=== PATIENT | male | born 1955 | race African-American/Black ===

== ENCOUNTER 2016-07-11 03:13 | Observation (INO) ==
[2016-07-11] MEDS ORDERED: MORPHINE 2 MG/1 ML SYRINGE IV STA (04:37)
[2016-07-11] MEDS ORDERED: ALUM/MAG/SIMETH/LIDO VISC 1:1 30 ML BOTTLE PO STA (04:37)
[2016-07-11] MEDS ORDERED: ONDANSETRON 4 MG/2 ML VIAL IV STA (04:37)
[2016-07-11] MEDS ORDERED: ASPIRIN 325 MG TABLET PO STA (04:37)
[2016-07-11] MEDS ORDERED: NITROGLYCERIN 2% OINT 1 INCH/GM PACK TOP STA (04:37)
--- NOTE | 2016-07-11 04:39 | Emergency Department Note ---
Kalpana Yu Gwan, am scribing for, and in the presence of, Renzo Benitez MD 04 :06. Eli Yu Charles R, MD, personally performed the services described in this documentation, ascribed by Janna Acuna in my presence, and it is both accurate and complete . Arrival - Arrival Chief Complaint: Chest Pain Stated Complaint: chest pain and nose continue to bleed ED Nursing Triage Note: PT STATES THAT HE STARTED HAVING CHEST PAIN SINCE 0 LAST NIGHT. STATES THAT HE TOOK HIS NIGHT TIME BLOOD PRESSURE MEDICATIONS AND THE PAIN WENT AWAY. STATES THAT HIS NOSE WAS BLEEDING AND HE THOUGHT THAT IT WOULD STOP. STATES THAT ABOUT 45 MINS AGO HIS CHEST PAIN CAME BACK AND THAT HIS NOSE CONTINUES TO BLEED. B/P IN LEFT ARM 180/119 RIGHT ARM 162/105 Mode of Arrival: Ambulatory Limitations: No Limitations Source: Patient, Old Records Reviewed, RN Notes Reviewed - History of Present Illness HPI Narrative: Pt is a 61 y/o male, with a hx of HTN, who presents to the ED with a c/o chest pain with an onset 0 last night. Patient stated that upon onset, he took his bP medication with some relief. 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 Patient said that his nose initially began bleeding on onset after he blew it and he was able to get it to stop. With second onset, his nose began to bleed again and he took 2 Clonidine with no relief. He confirmed that his pCP is Dr. Erik Philip. Patient denies being in any pain now and his epistaxis is controlled. At time of triage, nurses note that BP in pt's left arm was 180/119 and the right arm was 162/105. Onset (ago): hour(s) Consistency: constant Severity: moderate Allergies/Adverse Reactions: Allergies Allergy/AdvReac Type Severity Reaction Status Date / Time No Known Allergies Allergy Verified 07/11/16 03:18 Review of System - Review of System 12 point system: reviewed and no additional remarkable complaints except as stated - Review of System Constitutional: Present: as per HPI, other (high blood pressure) Head/Ears/Nose/Throat: Present: see HPI, epistaxis Cardiovascular: Present: as per HPI, chest pain Medical,Surgical,& Family Hx - Medical History Cardio: History of: Hypertension Rheumatology: History of;: Gout Renal: History of: Renal Problems - Social History Smoking Status: Never smoker Frequency of Alcohol Use: None Type of Drug Use: None Exam Vital Signs: Vital Signs Temperature 98.2 F 07/11/16 03:13 Pulse Rate 56 L 07/11/16 04:52 Respiratory Rate 15 07/11/16 04:52 Blood Pressure 138/90 07/11/16 04:52 O2 Sat by Pulse Oximetry 100 07/11/16 04:52 - General General appearance: alert, in no apparent distress - Head Head exam: Present: atraumatic, normocephalic - Eye Eye exam: Present: normal appearance, PERRL, EOMI - ENT ENT exam: Present: other (clotted blood noted in right nostril) - Neck Neck exam: Present: full ROM, trachea midline. Absent: tenderness, meningismus , lymphadenopathy, thyromegaly - Chest Chest inspection: Present: symmetric chest wall rise. Absent: tenderness - Respiratory Respiratory exam: Present: normal lung sounds bilaterally. Absent: respiratory distress - Cardiovascular Cardiovascular exam: Present: regular rate, normal rhythm, normal heart sounds. Absent: murmur, rubs, gallop - Abdominal Exam Abdominal exam: Present: soft, normal bowel sounds. Absent: distention, tenderness, guarding, rebound - Extremities Exam Extremities exam: Present: full ROM. Absent: tenderness, pedal edema, calf tenderness - Back Exam Back exam: Present: full ROM. Absent: tenderness - Neurological Exam Neurological exam: Present: alert, oriented X3, CN II-XII intact. Absent: motor sensory deficit - Psychiatric Psychiatric exam: Present: normal affect, normal mood - Skin Skin exam: Present: warm, dry, intact, normal color Course - Consultations Consultation #1: Dr. Del Rio will admit patient Time: 05:40 Results - Labs CBC & BMP: 07/11/16 03:40 07/11/16 03:40 Lab Results: I have reviewed the patients labs Labs: Laboratory Tests 07/11/16 03:40 Urine pH 7.0 Ur Specific [place] 1.008 Urine Urobilinogen < 2.0 H Urine RBC <1 Urine Mucus Occasional Disposition Clinical Impression: Chest pain, Acute posterior epistaxis, Renal insufficiency Case discussed with: patient, patient's family Disposition: Still a Patient Condition: Stable Time of Disposition: 05:41
--- NOTE | 2016-07-11 04:41 | EKG Report ---
Stationary ECG Study [facility] ER Test Date: 07/11/2016 3:23:39 AM Pat Name: FOZIA [facility] Department: Room: Gender: M Can Handler: Luba : 1955 Requested by: Renzo Pereira Order Number: [id number] Reading MD: FERMÍN GERMAIN Intervals [place] Rate: 69 P: 51 VT: 162 QRS: 60 QRSD: 87 T: -60 QT: 382 QTc: 402 Interpretive Statements SINUS RHYTHM LEFT VENTRICULAR HYPERTROPHY WITH REPOLARIZATION ABNORMALITY Electronically Signed On 07-11-16 18:07:42 ENGINEERING MANAGER ELECTRONICS by FERMÍN GERMAIN [email or web address]
[2016-07-11] MEDS ORDERED: ALUM/MAG/SIMETH/LIDO VISC 1:1 30 ML BOTTLE PO ONE (04:44)
[2016-07-11] MEDS ORDERED: ASPIRIN 325 MG TABLET ONE (04:44)
[2016-07-11] MEDS ORDERED: NITROGLYCERIN 2% OINT 1 INCH/GM PACK TOP ONE (04:44)
[2016-07-11] MEDS ORDERED: MORPHINE 2 MG/1 ML SYRINGE ONE (04:44)
[2016-07-11] MEDS ORDERED: ONDANSETRON 4 MG/2 ML VIAL ONE (04:44)
[2016-07-11 05:09] LABS: Apearance,Urine CLEAR (Clear); Bilirubin,Urine Negative (Negative); Blood, Urine Negative (Negative); Glucose,Urine (UA) Negative (Negative); Ketones,Urine Negative (Negative); Mucus,Urine Occasional /LPF (Occasional); Nitrite,Urine Negative (Negative); Protein,Urine Negative; RBC,Urine <1 /HPF (0-4); Urine Color Straw (Yellow); Urine Specific Gravity 1.008 (1.001-1.035); Urine Urobilinogen < 2.0 EU/DL (0.2-1.0)
[2016-07-11 05:27] LABS: Basophils % 0.6 % (0.0-0.8); Eosinophils # 0.1 10*3/uL (0.0-0.87); Eosinophils % 2.9 % (0.00-10.9); Hematocrit 32.6 VOL% (42.0-52.0); Hemoglobin 10.7 GM/DL (14.0-18.0); Immature Granulocytes % 0.2 %; Immature Granulocytes Absolute 0.01 #; Lymphocytes # 1.6 10*3/uL (1.4-4.0); Lymphocytes % 34.2 % (21.2-54.2); Mean Corpuscular HGB Conc 32.8 GM/DL (32-36); Mean Corpuscular Hemoglobin 31 PG (27-34); Mean Corpuscular Volume 93.1 FL (87-102); Mean Platelet Volume 11.1 FL (9.6-12.0); Monocytes # 0.5 10*3/uL (0.11-0.8); Monocytes % 9.6 % (1.7-12.7); Neutrophils # 2.5 10*3/uL (1.4-7.4); Neutrophils % 52.5 % (38.7-73.9); Platelet Count 246 T/CUMM (130-400); Red Cell Distribution Width 13.6 % (9.3-17.3); White Blood Count 4.8 T/CUMM (4-12)
[2016-07-11 05:34] LABS: D-Dimer 0.7 MG/L FEU; INR 1.1; PT Patient Result 11.2 SECS
[2016-07-11 05:38] LABS: Alanine Aminotransferase 21 U/L (16-61); Albumin 3.4 G/DL (3.4-5.0); Alkaline Phosphatase 77 U/L (45-117); Aspartate Amino Transferase 26 U/L (0-37); Bilirubin,Total < 0.39 MG/DL (0.2-1.0); Blood Urea Nitrogen 26 MG/DL (7-18); Calcium 9.3 MG/DL (8.5-10.1); Glucose 128 MG/DL (74-106); Magnesium 2.4 MG/DL (1.8-2.4); Osmolality,Calculated 287.3 MOS/KG (273-304); Potassium 3.5 MMOL/L (3.5-5.1); Sodium 141 MMOL/L (136-145); Total Protein 7.7 G/DL (6.4-8.3)
--- NOTE | 2016-07-11 06:03 | Hospitalist History & Physical ---
Assessment and Plan (1) Chest pain Status: Acute Current Visit: Yes (2) Acute posterior epistaxis Status: Acute Current Visit: Yes (3) Renal insufficiency Status: Acute Assessment and plan: Plan for this patient #1 admit the patient our service #2 potline monitor #3 cardiology evaluation #4 serial troponins #5 home as appropriate #6 monitor H&H secondary to the epistaxis #7 no Lovenox for now Current Visit: Yes History of Present Illness Chief complaint: Nose bleed and chest pain History of present illness: Mr. Fraser is a 61 year old male with past medical history significant for hypertension and gout was his normal state of health till yesterday. Apparently patient was developed a nosebleed. Eventually the nose bleeds topped.Nosebleed did return later. This occurred after he blew his nose. He came up to our hospital further evaluation. The nosebleed has since stopped. But he developed a dull chest pain on the left side of his chest. He said it was sizable time. No associated shortness of breath or diaphoresis Patient was found to be a little bradycardic while being examined by the ER physician. And he requested to vomit admit the patient to our service Allergies Allergy/AdvReac Type Severity Reaction Status Date / Time No Known Allergies Allergy Verified 07/11/16 03:18 Medical,Surgical,& Family Hx - Medical History Cardio: History of: Hypertension Rheumatology: History of;: Gout Renal: History of: Renal Problems - Social History Smoking Status: Never smoker Frequency of Alcohol Use: None Type of Drug Use: None Exam - Constitutional Vitals: Period Temp Pulse Resp BP Sys/[place] Pulse Ox Last 24 Hr 98.2 F 56-78 15-20 133-180/90-119 97-100 - General General appearance: alert, in no apparent distress - Head Head exam: Present: atraumatic, normocephalic - Eye Eye exam: Present: normal appearance, PERRL, EOMI - ENT ENT exam: Present: other (clotted blood noted in right nostril) - Neck Neck exam: Present: full ROM, trachea midline. Absent: tenderness, meningismus , lymphadenopathy, thyromegaly - Chest Chest inspection: Present: symmetric chest wall rise. - Respiratory Respiratory exam: Present: normal lung sounds bilaterally. - Cardiovascular Cardiovascular exam: Present: regular rate, normal rhythm, normal heart sounds. - Abdominal Exam Abdominal exam: Present: soft, normal bowel sounds. - Extremities Exam Extremities exam: Present: full ROM. Absent: tenderness, pedal edema, calf tenderness - Back Exam Back exam: Present: full ROM. Absent: tenderness - Neurological Exam Neurological exam: Present: alert, oriented X3, CN II-XII intact. Absent: motor sensory deficit - Psychiatric Psychiatric exam: Present: normal affect, normal mood - Skin Skin exam: Present: warm, dry, intact, normal color Results - Labs CBC & BMP: 07/11/16 03:40 07/11/16 03:40
[2016-07-11] MEDS ORDERED: ONDANSETRON 4 MG/2 ML VIAL IV PRN (06:07)
[2016-07-11] MEDS ORDERED: INDOMETHACIN 50 MG CAPSULE PO PRN (06:11)
--- NOTE | 2016-07-11 07:23 | XRay Report ---
Referring Physician: Renzo Benitez Exam: XR chest 1V portable Date: July 11, 2016 at 4:28 AM Reason: Chest pain Comparison: Chest PA lateral April 22, 2013 Findings: The cardiac silhouette is borderline enlarged. No focal consolidation, pneumothorax or pleural effusion is identified. No acute osseous process is seen. Impression: 1. Borderline cardiomegaly. 2. No acute pulmonary process is identified. PROCEDURE INTERPRETED AT [facility] DEPARTMENT OF RADIOLOGY Final Report Signed by: Dr. Jann Benedict
--- NOTE | 2016-07-11 07:57 | EKG Report ---
Stationary ECG Study [facility] ER Test Date: 07/11/2016 7:55:35 AM Pat Name: FOZIA [facility] Department: Room: Gender: M Chief Commercial Officer: MAKSIM : 1955 Requested by: Renzo Pereira Order Number: [id number] Reading MD: FERMÍN GERMAIN Intervals [place] Rate: 56 P: 31 UT: 214 QRS: 38 QRSD: 89 T: -12 QT: 431 QTc: 422 Interpretive Statements SINUS RHYTHM WITH PROLONGED UT INTERVAL NONSPECIFIC T-WAVE ABNORMALITY Electronically Signed On 07-11-16 18:12:12 GERIATRIC NURSE by FERMÍN GERMAIN [email or web address]
[2016-07-11 08:15] LABS: Basophils % 0.4 % (0.0-0.8); Eosinophils # 0.1 10*3/uL (0.0-0.87); Eosinophils % 1.9 % (0.00-10.9); Hematocrit 30.1 VOL% (42.0-52.0); Hemoglobin 9.9 GM/DL (14.0-18.0); Immature Granulocytes % 0.2 %; Immature Granulocytes Absolute 0.01 #; Lymphocytes # 1.4 10*3/uL (1.4-4.0); Lymphocytes % 30.2 % (21.2-54.2); Mean Corpuscular HGB Conc 32.9 GM/DL (32-36); Mean Corpuscular Hemoglobin 31 PG (27-34); Mean Corpuscular Volume 93.2 FL (87-102); Mean Platelet Volume 10.2 FL (9.6-12.0); Monocytes # 0.4 10*3/uL (0.11-0.8); Neutrophils # 2.8 10*3/uL (1.4-7.4); Neutrophils % 59.3 % (38.7-73.9); Platelet Count 222 T/CUMM (130-400); Red Blood Count 3.23 MC/CUMM (3.8-5.5); Red Cell Distribution Width 13.4 % (9.3-17.3); White Blood Count 4.7 T/CUMM (4-12)
[2016-07-11] MEDS ORDERED: CARVEDILOL 12.5 MG TABLET PO SCH (09:00)
[2016-07-11] MEDS ORDERED: hydroCHLOROthiazide 25 MG TABLET ONE (09:55)
[2016-07-11] MEDS ORDERED: POTASSIUM CHLORIDE 20 MEQ TABLET PO ONE (09:55)
[2016-07-11] MEDS ORDERED: CARVEDILOL 3.125 MG TABLET ONE (09:56)
[2016-07-11] MEDS ORDERED: amLODIPine 5 MG TABLET ONE (09:56)
[2016-07-11] MEDS: hydroCHLOROthiazide 12.5 MG CAPSULE PO SCH (09:58)
[2016-07-11] MEDS: POTASSIUM CHLORIDE 20 MEQ TABLET PO SCH (09:59)
[2016-07-11] MEDS: amLODIPine 10 MG TABLET PO SCH (10:04)
[2016-07-11] MEDS: ALLOPURINOL 100 MG TABLET PO SCH (10:07)
[2016-07-11] MEDS ORDERED: ASPIRIN CHEW 81 MG TABLET PO ONE (10:11)
--- NOTE | 2016-07-11 11:23 | EKG Report ---
Stationary ECG Study [facility] ER Test Date: 07/11/2016 11:20:46 AM Pat Name: FOZIA [facility] Department: Room: EDIDIT Gender: M Potash Flaker: MAKSIM : 1955 Requested by: Renzo Pereira Order Number: [id number] Reading MD: FERMÍN GERMAIN Intervals [place] Rate: 54 P: 32 MD: 212 QRS: 41 QRSD: 91 T: -8 QT: 438 QTc: 423 Interpretive Statements SINUS BRADYCARDIA WITH PROLONGED MD INTERVAL NONSPECIFIC T-WAVE ABNORMALITY Electronically Signed On 07-11-16 18:15:35 DIETARY SUPERVISOR by FERMÍN GERMAIN [id number]
[2016-07-11] MEDS: NITROGLYCERIN 2% OINT 1 INCH/GM PACK TOP SCH ×2 (13:15→17:20)
[2016-07-11] MEDS: CARVEDILOL 25 MG TABLET PO SCH (20:21)
[2016-07-12] MEDS: NITROGLYCERIN 2% OINT 1 INCH/GM PACK TOP SCH ×4 (00:01→17:40)
--- NOTE | 2016-07-12 08:26 | Cardiology Consult Note ---
Clarke Yu Lauren, NICK, am scribing for, and in the presence of, Lior Tavares MD 17:04. Assessment and Plan - Time spent with patient Time spent with patient: Greater than 30 minutes (1) Chest pain Status: Acute Current Visit: Yes (2) Hypertension Status: Acute Current Visit: Yes (3) Acute posterior epistaxis Status: Acute Current Visit: Yes (4) Renal insufficiency Status: Acute Current Visit: Yes History of Present Illness - Data of Consult Patient: new to practice (seen by Dr. Pena 04/23/13) Consult date: 07/11/16 Requesting Physician: Jj Del Rio - Consult Narrative Reason for consult: chest pain History of present illness: Mr. Fraser is a 61 year old [place] male who presented to the hospital with a nosebleed that would not quit. He reports he has never had trouble with a nosebleed before. He reports he has recently had a cold. Upon exam, he tells me he has been under a lot of stress and emotional distress lately. He reports his daughter who does not work recently moved to [place] with his 3 grandchildren to live with her boyfriend who also does not work and he has been having to send them money quite often. He reports one of his grandchildren called him yesterday to tell him that they were hungry and cold and had been sleeping on the floor. He reports he went to send his daughter a money gram and started having a nosebleed while in line. He reports it would not stop bleeding so he presented to the emergency room. He also complained of left-sided chest pain. 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 He does home exercises every day and he and his walk on the weekends around [facility]. He tells me that for the last several months he can walk briskly for about 4 laps before having a dull ache in the left side of his chest. He reports he does not stop walking but simply slows his pace down and the pain subsides. He denies shortness of breath, palpitations, dizziness, lightheadedness, diaphoresis, or syncopal events. He was seen in the remote past by Dr. Pena. He has a history of hypertension. He has never smoked. He has risk factors significant for: Age, hypertension. He tells me he has had 2 stress tests in the past the most recent one being about 2 years ago. She reports to his knowledge these were normal. His last echocardiogram on record was 04/22/2013 which revealed an ejection fraction of 55%, severe concentric left ventricular hypertrophy, and 1 + tricuspid regurgitation. He does have some renal insufficiency. His creatinine is 2.0. H&H is a little low at 9.9 and 30.1. Blood pressure was high on admission at 180/119. Blood pressure is now well controlled. His troponins have been negative. EKG shows normal sinus rhythm with first-degree AV block. He currently has no overt bleeding. Physical exam: General: Present: Appears Well, No Apparent Distress HEENT: Present: Normocephaly, Mucus Membranes Moist, Other (multiple dental caries and missing teeth.) Neck: Present: Supple Neck, Midline Trachea, No Masses, No Bruit Cardiac: Present: Reg Rate and Rhythm, No Murmur Lungs: Present: Normal Exam, Normal Breath Sounds, No Wheeze, Rales, Rhonchi Neuro: Present: Grossly Intact. Absent: Resting Tremor, Essential Tremor Abdomen: Present: Soft, Active Bowel Sounds, No Masses, Non-Tender Skin: Present: Clear. Absent: Rash Musculoskeletal: Present: No Fluid Collection, No Pain, Normal Range of Motion Extremities: Present: No Clubbing, No Cyanosis, No Edema, Normal Upper Extr. Pulses, Normal Lower Extr. Pulses Impression: Chest pain Hypertension Acute posterior epistaxis Renal insufficiency Cardiology addendum 61-year-old man with atypical chest pain provoked by emotional stress. Also had his first nosebleed. Blood pressure was 180/90 at presentation. 15 year history of hypertension. Patient takes clonidine 0.2 mg daily, HCTZ 12.5 mg daily, amlodipine 10 mg daily and carvedilol 12.5 g twice daily. EKG shows sinus rhythm ST-T wave changes only. Chest x-ray shows mild cardiomegaly no heart or infiltrate. Lifetime non-smoker and nondrinker. Patient does have normocytic anemia. Hemoglobin 9.9 hematocrit 30.1. Patient takes Indocin 50 mg 3 times daily for arthritic complaints. He had a normal nuclear stress test at [facility] office 2 years ago. Mild chronic renal insufficiency, creatinine 2.0. 5 feet 10 inches tall, 199 pounds. Patient is nearly edentulous has several carious teeth that need to be extracted. Plan Monitor Optimize BP meds Lexiscan cardiac stress test in a.m. CC: Rekha Owen MD - Home Medications and Allergies Home Medications: Home Medications Medication Instructions Recorded Confirmed Type Allopurinol 100 mg PO DAILY 07/11/16 07/11/16 History Aspirin [Ecotrin] 81 mg PO DAILY 07/11/16 07/11/16 History Carvedilol [Coreg] 12.5 mg PO BID 07/11/16 07/11/16 History Hydrochlorothiazide [Microzide] 12.5 mg PO DAILY 07/11/16 07/11/16 History Indomethacin [Indomethacin Cap] 50 mg PO TID PRN 07/11/16 07/11/16 History Potassium Chloride Cap/Tab [K Dur] 20 meq PO DAILY 07/11/16 07/11/16 History Saw [place] Fruit [Saw [place]] 450 mg PO DAILY 07/11/16 07/11/16 History Vit C/Kaur & Celery Ex/Grp E 1 each PO DAILY 07/11/16 07/11/16 History [Tart Kaur Capsule] amLODIPine [Norvasc] 10 mg PO DAILY 07/11/16 07/11/16 History cloNIDine HCl [Clonidine HCl] 0.2 mg PO DAILY 07/11/16 07/11/16 History Allergies/Adverse Reactions: Allergies Allergy/AdvReac Type Severity Reaction Status Date / Time No Known Allergies Allergy Verified 07/11/16 03:18 - Constitutional Constitutional: Absent: anorexia, chills, daytime sleepiness, excessive sweating , fatigue, fever(s), frequent falls, headache(s), increased appetite, lethargy, malaise, night sweats, stops breathing during sleep, weakness, weight gain, weight loss - EENT Eyes: Absent: blurry vision, diplopia, loss of vision Ears: Absent: decreased hearing, ear discharge, ear pain Nose, mouth and throat: Present: epistaxis, nasal congestion. Absent: dysphagia , headache(s), hoarseness, lip swelling, neck mass, neck pain, sinus pressure, sore throat, throat swelling, tongue swelling, vertigo - Cardiovascular Cardiovascular: Present: as per HPI, chest pain with activity. Absent: chest pain at rest, claudication, diaphoresis, dyspnea, dyspnea on exertion, edema, radiating jaw, neck or arm pain, lightheadedness, orthopnea, palpitations, PND - Respiratory Respiratory: Present: as per HPI. Absent: cough, dyspnea, hemoptysis, dyspnea on exertion, wheezing, snoring, pain on inspiration - Gastrointestinal Gastrointestinal: Absent: abdominal pain, bloating, constipation, diarrhea, dysphagia, heartburn, hematemesis, hematochezia, loose stools, melena, nausea, vomiting - Genitourinary Genitourinary: Absent: difficulty urinating, dysuria, flank pain, hematuria, nocturia, urinary frequency, urinary incontinence - Musculoskeletal Musculoskeletal: Absent: arthralgias, back pain, joint swelling, limited range of motion, muscle cramps, muscle weakness, myalgias - Neurological Neurological: Absent: abnormal gait, abnormal speech, behavioral changes, confusion, convulsions, disequilibrium, focal weakness, headache(s), memory loss , numbness, paresthesias, radicular pain, syncope, tremor(s) - Psychiatric Psychiatric: Absent: anxiety, confusion, depression, memory loss, panic attacks - Endocrine Endocrine: Absent: cold intolerance, fatigue, heat intolerance, polydipsia, polyphagia - Hematologic/Lymphatic Hematologic/Lymphatic: Absent: easy bleeding, easy bruising, lymphadenopathy Medical,Surgical,& Family Hx - Medical History Cardio: History of: Hypertension Rheumatology: History of;: Gout Renal: History of: Renal Problems - Surgical History Orthopedic Surgeries: Surgical HX of;: Orthopedic Surgery (left ankle) - Family History Family History: Reports;: Family Heart Disease, Family Hypertension - Social History Smoking Status: Never smoker Frequency of Alcohol Use: None Type of Drug Use: None Physical Examination Vital Signs Temp Pulse Resp BP Pulse Ox 98.2 F 78 20 180/119 99 07/11/16 03:13 07/11/16 03:13 07/11/16 03:13 07/11/16 03:13 07/11/16 03:13 General: Present: Appears Well, No Apparent Distress HEENT: Present: Normocephaly, Mucus Membranes Moist, Other (multiple dental caries and missing teeth.) Neck: Present: Supple Neck, Midline Trachea, No Masses, No Bruit Cardiac: Present: Reg Rate and Rhythm, No Murmur Lungs: Present: Normal Exam, Normal Breath Sounds, No Wheeze, Rales, Rhonchi Neuro: Present: Grossly Intact. Absent: Resting Tremor, Essential Tremor Abdomen: Present: Soft, Active Bowel Sounds, No Masses, Non-Tender Skin: Present: Clear. Absent: Rash Musculoskeletal: Present: No Fluid Collection, No Pain, Normal Range of Motion Extremities: Present: No Clubbing, No Cyanosis, No Edema, Normal Upper Extr. Pulses, Normal Lower Extr. Pulses Result/EKG - Labs CBC & BMP: 07/11/16 08:05 07/11/16 03:40 Lab Results: I have reviewed the past 24 hour labs Labs: Laboratory Results - last 24 hr 07/11/16 07/11/16 07/11/16 08:05 08:05 11:25 WBC 4.7 RBC 3.23 L Hgb 9.9 L Hct 30.1 L MCV 93.2 MCH 31 MCHC 32.9 RDW 13.4 Plt Count 222 MPV 10.2 Neut % (Auto) 59.3 Lymph % (Auto) 30.2 Oliver % (Auto) 8.0 Eos % (Auto) 1.9 Baso % (Auto) 0.4 Neut # (Auto) 2.8 Lymph # (Auto) 1.4 Oliver # (Auto) 0.4 Eos # (Auto) 0.1 Baso # (Auto) 0.0 Immature Gran % 0.2 Nucleated RBC % 0.0 Immature Gran # 0.01 Nucleated RBCs # 0.00 Troponin I < 0.015 < 0.015 - EKG EKG results: interpreted by me, sinus rhythm (with first-degree AV block.) I, Lior Tavares MD, personally performed the services described in this documentation, ascribed by Janie Mir RN in my presence, and it is both accurate and complete [id number] .
--- NOTE | 2016-07-12 08:28 | Cardiology Progress Note ---
Assessment and Plan (1) Chest pain Status: Acute Current Visit: Yes (2) Hypertension Status: Acute Current Visit: Yes (3) Acute posterior epistaxis Status: Acute Current Visit: Yes (4) Renal insufficiency Status: Acute Current Visit: Yes Cardiology - PN: Subj Interval history: Cardiology note. Slept better last night. Telemetry benign. Troponin negative 2. Clear lungs. Regular rhythm. No murmur or gallop or chest wall tenderness. Abdomen obese soft benign. Nearly edentulous with carious teeth. Plan Lexiscan Cardiolite stress test today Exam (Progress Note) - Constitutional Vitals: Period Temp Pulse Resp BP Sys/[place] Pulse Ox Last 24 Hr 97.0 F-98.7 F 52-78 16-20 107-151/74-98 90-98 Result/EKG - Labs CBC & BMP: 07/11/16 08:05 07/11/16 03:40 Labs: Laboratory Results - last 24 hr 07/11/16 07/11/16 08:05 11:25 Troponin I < 0.015 < 0.015
--- NOTE | 2016-07-12 08:54 | Event Note ---
Achieved THR without complaints of chest pain, heaviness or tightness. Good exercise tolerance. No arrythmia noted. 1mm ST depression horizontally inferolateral leads. Now to Nuclear medicine for completion of final scan. Dr. Tavares to read, interpret and advise.
[2016-07-12] MEDS ORDERED: ASPIRIN EC 81 MG TABLET PO SCH (09:00)
[2016-07-12] MEDS ORDERED: REGADENOSON 0.4 MG/5 ML SYRINGE IV ONE (09:13)
[2016-07-12] MEDS: CARVEDILOL 25 MG TABLET PO SCH (09:59)
[2016-07-12] MEDS: ALLOPURINOL 100 MG TABLET PO SCH (10:00)
[2016-07-12] MEDS: amLODIPine 10 MG TABLET PO SCH (10:00)
[2016-07-12] MEDS: POTASSIUM CHLORIDE 20 MEQ TABLET PO SCH (10:00)
[2016-07-12] MEDS: hydroCHLOROthiazide 12.5 MG CAPSULE PO SCH (10:00)
--- NOTE | 2016-07-12 12:54 | Hospitalist Progress Note ---
Assessment and Plan (1) Acute posterior epistaxis Status: Resolved Current Visit: Yes (2) Renal insufficiency Status: Chronic Current Visit: Yes (3) Hypertension Status: Chronic Current Visit: Yes Qualifiers: Hypertension type: essential hypertension Qualified Code(s): I10 - Essential (primary) hypertension Hospitalist: Subjective Interval history: patient had treadmill stress test and did accomplish THR, without symptoms. He went for nuclear part and final report isn't back. He denies any complaints. Exam - Constitutional Vitals: Period Temp Pulse Resp BP Sys/[place] Pulse Ox Last 24 Hr 97.0 F-98.7 F 60-78 18-20 127-151/80-98 90-98 General appearance: no acute distress - Head Head exam: Present: normocephalic, atraumatic - Eye Eye exam: Present: EOMI Pupils: Present: GLENN - ENT ENT exam: Present: normal exam - Respiratory Respiratory exam: Present: clear to auscultation bilaterally - Cardiovascular Cardiovascular exam: Present: regular rate and rhythm - GI/Abdominal GI/Abdominal exam: Present: normal bowel sounds, soft - Extremities Exam Extremities exam: Present: full ROM - Neurological Exam Neurological exam: Present: alert, oriented X3, CN II-XII intact - Psychiatric Psychiatric exam: Present: normal affect, normal mood - Skin Skin exam: Present: warm, intact Results - Labs CBC & BMP: 07/11/16 08:05 07/11/16 03:40
[2016-07-12 15:54] VITALS: BP 103/65
--- NOTE | 2016-07-12 16:18 | Discharge Summary ---
Hospital Course - Hospital Course Hospital Course: Mr. Fraser is a 61 yo male with history of hypertension who presented to the ER complaining of nosebleed which has started several hours earlier along with chest pain after receiving some disturbing news about his grandchildren. He has his nasal passage packed the the ER and routine labs were negative. He was admitted to telemetry with serial cardiac enzymes which were negative. EKG didn't have any acute changes and he gave a history concerning for angina. Cardiology was consulted and he did have a treadmill/nuclear stress test which were negative. His nose didn't bleed anymore and his blood pressure was well controlled. He is now stable for discharge home. Diagnosis - Discharge Diagnosis (1) Acute posterior epistaxis Status: Resolved (2) Renal insufficiency Status: Chronic (3) Hypertension Status: Chronic Discharge Plan - Discharge Data Disposition: Disch To Home/Self Care Condition at Discharge: Stable Discharge Diet: heart healthy, low salt diet Activity: resume usual activities as tolerated Hygiene: no restrictions Contact your physician if you experience:: Shortness of breath, Bleeding - Discharge Medications Continue Hydrochlorothiazide [Microzide] 12.5 mg PO DAILY amLODIPine [Norvasc] 10 mg PO DAILY Indomethacin [Indomethacin Cap] 50 mg PO TID PRN PRN Reason: Gout Allopurinol 100 mg PO DAILY cloNIDine HCl [Clonidine HCl] 0.2 mg PO DAILY Saw [place] Fruit [Saw [place]] 450 mg PO DAILY Potassium Chloride Cap/Tab [K Dur] 20 meq PO DAILY Vit C/Kaur & Celery Ex/Grp E [Tart Kaur Capsule] 1 each PO DAILY Carvedilol [Coreg] 12.5 mg PO BID Aspirin [Ecotrin] 81 mg PO DAILY - Follow Up or Referral - Forms/Instructions Additional Discharge Instructions: follow up with PCP in 5-7 days Exam - Constitutional Vitals: Period Temp Pulse Resp BP Sys/[place] Pulse Ox Last 24 Hr 97.0 F-98.7 F 60-71 18-20 103-136/65-91 90-97 General appearance: no acute distress - Head Head exam: Present: normocephalic, atraumatic - Eye Eye exam: Present: EOMI Pupils: Present: GLENN - ENT ENT exam: Present: normal exam - Respiratory Respiratory exam: Present: clear to auscultation bilaterally - Cardiovascular Cardiovascular exam: Present: regular rate and rhythm - GI/Abdominal GI/Abdominal exam: Present: normal bowel sounds, soft - Extremities Exam Extremities exam: Present: full ROM - Neurological Exam Neurological exam: Present: alert, oriented X3, CN II-XII intact - Psychiatric Psychiatric exam: Present: normal affect, normal mood - Skin Skin exam: Present: warm, intact Discharge Results Procedures and tests throughout hospitalization: Pending Orders 07/12/16 04:00 NM toney perf SPECT rest or str IN AM DS: Provider Date of admission: 07/11/16 06:07 Primary care physician: . No PCP Attending physician on admission: Rekha Owen MD Discharging clinician: Rekha Owen MD Expected date of discharge: 07/12/16
--- NOTE | 2016-07-12 16:59 | Nuclear Medicine Report ---
DATE: 07/12/2016 REFERRING PHYSICIAN: Dr. Jj Riggins PROCEDURE: Exercise Cardiolite gated SPECT perfusion study. INITIAL IMPRESSION: 1. ATYPICAL CHEST PAIN. 2. ABNORMAL EKG. 3. HYPERTENSION. FINAL IMPRESSION: NORMAL EXERCISE CARDIOLITE GATED SPECT PERFUSION STUDY. I. DESCRIPTION OF PROCEDURE: The patient received 10.0 mCi of Technetium 99m Cardiolite IV, and re sting images was obtained in the routine manner 20 minutes later. The patient then walked for 7 min utes and 16 seconds on the standard Chris protocol and achieved a peak heart rate of 141, which is 8 8% of his predicted maximal heart rate. At peak exercise, 30.0 mCi of Technetium 99m Cardiolite IV was injected and stress image was obtained in the routine manner 20 minutes later. Serial electroca rdiograms were performed. The initial blood pressure was 140/100 and it was 150/90 immediately post exercise. II. RESULTS: The patient had no chest pain or arrhythmias and the test was triggering shortness of breath and fatigue. The resting EKG demonstrates normal sinus rhythm with LVH with strain pattern. With exercise, no diagnostic EKG changes occurred. No arrhythmias. Tomographic imaging demonstrates homogeneous uptake of radioisotope in all segments. There is no ev idence for ischemia or scar. Gated SPECT imaging demonstrates normal wall motion and thickening in all segments. The calculated ejection fraction is 59%. III. FINAL IMPRESSION: 1. CLINICALLY AND ELECTROCARDIOGRAPHICALLY NEGATIVE. 2. SCINTIGRAPHICALLY NORMAL PERFUSION STUDY. IV: DISPOSITION: The patient should be reassured regarding the lack of any evidence for significan t coronary artery disease at this time. He had no chest pain or diagnostic EKG changes and tomograp hic imaging is normal. In addition, ventricular function is well-preserved with ejection fraction o f 59%. This is a low-risk scan. Continued medical therapy and risk factor modification recommended . Procedure performed and interpreted at [facility] Department of Radiology. CC: Dr. Jj Riggins
--- NOTE | 2016-07-13 11:05 | Nuclear Medicine Report ---
XERCISE CARDIOLITE GATED SPECT PERFUSION STUDY DATE: 07/13/2016 REFERRING PHYSICIAN: Jj Del Rio MD PROCEDURE: EXERCISE CARDIOLITE GATED SPECT PERFUSION STUDY. INITIAL IMPRESSION: 1. A 61-YEAR-OLD MALE WITH ATYPICAL CHEST PAIN. 2. HYPERTENSION. 3. ABNORMAL EKG. FINAL IMPRESSION: NORMAL EXERCISE CARDIOLITE GATED SPECT PERFUSION STUDY. I. DESCRIPTION OF PROCEDURE: The patient received 10.0 mCi of Technetium-99m Cardiolite IV and res t imaging was obtained in the routine manner 20 minutes later. The patient then walked for 7 minute s and 16 seconds on the standard Chris protocol and achieved a peak heart rate of 141, which is 88% of his predicted maximal heart rate. At peak exercise, 30.0 mCi of Technetium-99m Cardiolite IV was injected and stress imaging was obtained in the routine manner 20 minutes later. Serial electrocar diograms were performed. The initial blood pressure was 155/80 and it was 160/90 immediately post e xercise. II. RESULTS: The patient had no chest pain or arrhythmias and the test was terminated due to short ness of breath and fatigue. The resting EKG demonstrates normal sinus rhythm with LVH with strained pattern. With exercise, no diagnostic EKG changes occurred. No arrhythmias. Tomographic imaging demonstrates homogeneous uptake of radioisotope in all segments. There is no ev idence for ischemia or scar. Gated SPECT imaging demonstrates normal wall motion and thickening in all segments. The calculated ejection fraction is 59%. III. FINAL IMPRESSION: 1. CLINICALLY AND ELECTROCARDIOGRAPHICALLY NEGATIVE. 2. GOOD WORK CAPACITY. THE PATIENT COMPLETED 8.7 METS. 3. SCINTIGRAPHICALLY NORMAL PERFUSION STUDY. IV. DISPOSITION: The patient should be reassured regarding the lack of any evidence for significan t coronary artery disease at this time. He had no chest pain or diagnostic EKG changes and tomograp hic imaging is normal. In addition, ventricular function is well preserved with an ejection fractio n of 59%. This is a low-risk scan. Continued medical therapy and risk factor modification recommen ded. Procedure performed and interpreted at [facility] [place] Department of Radiology.
== END 2016-07-12 18:02 | disposition home or self-care (01) ==
LOC: N.EDINP 03:13 → N.ED 03:13 → N.TELES 11:51
PROVIDERS: ADMIT Family Medicine; ATTEND Family Medicine